=== PATIENT | male | born 1935 | race Caucasian/White ===

== ENCOUNTER 2017-11-16 07:10 | Emergency (ER) | payer MEDICARE ==
[2017-11-16] MEDS ORDERED: NS 0.9% 1000 ML* 1,000 ML IV SCH (08:15)
[2017-11-16 08:54] VITALS: BP 126/65
--- NOTE | 2017-11-16 11:45 | ED ---
Tk Callejas Stephanie, scribed for Aristides Bull MD on 11/16/17 at 0801 . Throat Pain/Nasal Congestion - HPI Summary HPI Summary: The pt is an 82 y/o M presenting to the ED with c/o the feeling of a foreign object in his throat that began at 06:15 today. He states that if feels like there is a loose object stuck in his throat that may be skin. The pt states he attempted to eat and drink to break the flap of skin off. The pt states he was dry-heaving this morning but he denies vomiting. He has past medical hx of bullous pemphigoid that began last fall. The pt's shear operator is Dr. Fernando Houston in [place], [place]. - History of Current Complaint Chief Complaint: EDGeneral Time Seen by Provider: 11/16/17 07:50 Hx Obtained From: Patient, Family/Core Dipper - daughter Onset/Duration: Sudden Onset, Lasting Hours - 2, Still Present Severity: Mild PMH/Surg Hx/FS Hx/Imm Hx Previously Healthy: No - bullous pemphigoid Sensory History: Denies: Hx Legally Blind EENT History: Denies: Hx Deafness - Surgical History Surgery Procedure, Year, and Place: NONE Infectious Disease History: No Infectious Disease History: Denies: Traveled Outside the in Last 30 Days - Family History Known Family History: Positive: Unknown - Due to never meeting biological parents - Social History Occupation: Retired Lives: With Family Alcohol Use: None Hx Substance Use: No Substance Use Type: Reports: None Smoking Status (MU): Unknown if Ever Smoked Review of Systems Negative: Fever Positive: Other - feeling of loose skin in throat Positive: Other - dry heaving without vomiting. Negative: Vomiting All Other Systems Reviewed And Are Negative: Yes Physical Exam - Summary Physical Exam Summary: General: well-appearing, no pain distress Skin: warm, bullous pemphigoid all over body Head: normal Eyes: EOMI, VIKKI ENT: hard palate in throat has a flap of loose skin, oral pharynx nml. Neck: supple, nontender Respiratory: CTA, breath sounds present Cardiovascular: RRR Abdomen: soft, nontender Bowel: present Musculoskeletal: normal, strength/ROM intact Neurological: normal, sensory/motor intact, A&O x3 Psychological: affect/mood appropriate Triage Information Reviewed: Yes Vital Signs On Initial Exam: Initial Vitals Temp Pulse Resp BP Pulse Ox 98.0 F 95 22 148/73 99 11/16/17 07:12 11/16/17 07:12 11/16/17 07:12 11/16/17 07:12 11/16/17 07:12 Vital Signs Reviewed: Yes Diagnostics - Vital Signs Vital Signs Temp Pulse Resp BP Pulse Ox 11/16/17 07:12 98.0 F 95 22 148/73 99 - Laboratory Lab Statement: Any lab studies that have been ordered have been reviewed, and results considered in the medical decision making process. Re-Evaluation - Re-Evaluation First Eval Re-Evaluation Time: 08:50 Change: Improved - ED physician removed a flap of skin from within the pt's throat with forceps. The pt is improved after the procedure without any gagging. ED physician discussed disharge plan with the pt and the pt understands. EENT Course/Dx - Course Course Of Treatment: BP noted and advised to follow up with PCP. ED physician removed a flap of skin from within the pt's throat with forceps. The pt is improved after the procedure without any gagging. 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 RETURN TO ED IF WORSE. - Diagnoses Provider Diagnoses: Elevated BP without diagnosis of hypertension, Bullous pemphigoid Discharge - Sign-Out/Discharge Documenting (check all that apply): Discharge - Discharge Plan Condition: Stable Disposition: HOME Referrals: Ramin Benton MD [Primary Care Provider] - Celso AGGARWAL,Fernando Toledo [Medical Doctor] - Additional Instructions: FOLLOW UP WITH YOUR TUBULAR SPLITTING MACHINE TENDER, DR HOUSTON, SCHEDULED TODAY FOR YOUR BULLOUS PEMPHIGOID. RETURN TO THE EMERGENCY DEPARTMENT FOR ANY WORSENING OF YOUR CONDITION OR QUESTIONS OR CONCERNS. YOUR BLOOD PRESSURE WAS ELEVATED TODAY; FOLLOW UP WITH YOUR PRIMARY CARE DOCTOR WITHIN ONE WEEK. - Billing Disposition and Condition Condition: STABLE Disposition: HOME The documentation as recorded by the Tk day Stephanie accurately reflects the service I personally performed and the decisions made by me, Aristides Bull MD.
== END 2017-11-16 09:54 | disposition home or self-care (01) ==
LOC: ED 07:10
DX: L12.0 Bullous pemphigoid (principal); R03.0 Elevated blood-pressure reading, without diagnosis of hypertension
CPT/HCPCS: 99282